=== PATIENT | male | born 1950 | race Caucasian/White ===

== ENCOUNTER → 2016-09-16 | Outpatient (CLI) | payer OTHER ==
[~2016-09-16] VITALS: Ht 165.1 cm; Wt 124.5 kg
[2016-09-16 14:33] VITALS: BP 144/74; PULSE 72; Ht 165.1 cm; Wt 124.5 kg
== END | disposition home or self-care (01) ==
LOC: C.NEUR 14:00
PROVIDERS: ATTEND Internal Medicine Pulmonary Disease
DX: G47.30 Sleep apnea, unspecified (principal)